=== PATIENT | male | born 1990 | race Caucasian/White ===

== ENCOUNTER 2020-07-14 11:40 | Emergency (ER) | payer MEDICAID ==
[~2020-07-14] VITALS: Ht 185.4 cm; Wt 110.0 kg
[2020-07-14] MEDS ORDERED: IBUPROFEN 600MG TABLET PO STA (12:21)
[2020-07-14] MEDS ORDERED: BACITRACIN ZINC OINT UDPKT TOP ONE (12:30)
[2020-07-14 12:45] VITALS: BP 157/88
[2020-07-14] MEDS ORDERED: IBUP-2029 PO (14:04)
== END 2020-07-14 14:18 | disposition home or self-care (01) ==
LOC: ER 12:28
DX: S01.111A Laceration without foreign body of right eyelid and periocular area, initial encounter (principal); Y04.0XXA Assault by unarmed brawl or fight, initial encounter; Y93.89 Activity, other specified; Y92.89 Other specified places as the place of occurrence of the external cause; Y99.8 Other external cause status
CPT/HCPCS: 12013; 99283